=== PATIENT | male | born 1990 | race Caucasian/White ===

== ENCOUNTER 2019-02-15 21:29 | Emergency (ER) | payer OTHER ==
[~2019-02-15] VITALS: Ht 180.3 cm; Wt 86.0 kg
[2019-02-15 22:23] VITALS: BP 140/85
== END 2019-02-15 22:26 | disposition home or self-care (01) ==
LOC: ED 22:00
DX: S71.152A Open bite, left thigh, initial encounter (principal); W50.3XXA Accidental bite by another person, initial encounter; Y93.89 Activity, other specified; Y92.89 Other specified places as the place of occurrence of the external cause; Y99.8 Other external cause status
CPT/HCPCS: 36415; 86701; 86702; 86705; 86706; 86803; 87340; 87389; 99283